=== PATIENT | female | born 1985 | race American Indian/Alaskan Native ===

== ENCOUNTER 2020-08-30 17:46 | Emergency (ER) | payer SELFPAY ==
[2020-08-31 06:14] VITALS: BP 123/81
[2020-08-31 06:22] LABS: Basophils % (Auto) 0.6 % (0.0-1.8); Eosinophils % (Auto) 0.1 % (0.0-4.3); Hematocrit 41.4 % (30.3-42.9); Hemoglobin 14.1 gm/dl (10.1-14.3); Lymphocytes # (Auto) 1.3 K/mm3 (1.2-5.4); Lymphocytes % (Auto) 18.7 % (13.4-35.0); Mean Corpuscular HGB Conc 34 % (30-34); Mean Corpuscular Volume 90 fl (79-97); Monocytes # (Auto) 0.3 K/mm3 (0.0-0.8); Monocytes % (Auto) 4.7 % (0.0-7.3); Platelet Count 220 K/mm3 (140-440); Red Blood Count 4.59 M/mm3 (3.65-5.03); Red Cell Distribution Width 12.9 % (13.2-15.2)
--- NOTE | 2020-08-31 06:29 | Emergency Department Report ---
HPI - HPI HPI: This is a 34-year-old -[place] female who presents to the emergency department with a complaint of depression and suicidal ideations, with a plan to stab herself. Patient says that she went to the store to buy cigarettes and soda and became severely depressed when she did not have the money to buy these items. She says that she has been without any money over the past 3 weeks. She has a history of bipolar disorder for which she says she is compliant with Haldol and Depakote. She denies any current hallucinations or any homicidal ideations. She has a past medical history of insulin-dependent diabetes. She denies any fever, headache, chest pain, shortness of breath, lower extremity s welling, nausea, vomiting. She denies any current alcohol intoxication or any illicit drug use. <ORALIA VELIZ - Last Filed: 08/31/20 15:41> <SABINE PRICE - Last Filed: 09/01/20 11:46> - General Chief Complaint: Psych Time Seen by Provider: 08/31/20 06:02 ED Past Medical Hx - Past Medical History Hx Diabetes: Yes Hx Psychiatric Treatment: Yes - Surgical History Past Surgical History?: No - Social History Smoking Status: Current Every Day Smoker Substance Use Type: None <ORALIA VELIZ - Last Filed: 08/31/20 15:41> ED Review of Systems ROS: Stated complaint: MENTAL HEALTH Other details as noted in HPI Comment: All other systems reviewed and negative Constitutional: denies: chills, fever Eyes: denies: eye pain, vision change Respiratory: denies: cough, shortness of breath Cardiovascular: denies: chest pain, palpitations Gastrointestinal: denies: abdominal pain, vomiting Musculoskeletal: denies: back pain, arthralgia Skin: denies: rash, lesions Neurological: denies: headache, weakness Psychiatric: depression, suicidal thoughts. denies: auditory hallucinations, visual hallucinations, homicidal thoughts <ORALIA VELIZ - Last Filed: 08/31/20 15:41> ROS: Stated complaint: MENTAL HEALTH Other details as noted in HPI <SABINE PRICE - Last Filed: 09/01/20 11:46> Physical Exam - Physical Exam Vital Signs: Vital Signs 08/30/20 08/31/20 18:55 06:00 Temperature 98.3 F 98.2 F Pulse Rate 81 Respiratory 20 18 Rate Blood Pressure 125/90 Blood Pressure 123/81 [Left] O2 Sat by Pulse 100 Oximetry Physical Exam: GENERAL: The patient is well-developed well-nourished. HENT: Normocephalic. Atraumatic. Patient has moist mucous membranes. EYES: Extraocular motions are intact. NECK: Supple. Trachea is midline. CHEST/LUNGS: Clear to auscultation. There is no respiratory distress noted. HEART/CARDIOVASCULAR: Regular. There is no tachycardia. There is no murmur. ABDOMEN: Abdomen is soft, nontender. Patient has normal bowel sounds. There is no abdominal distention. SKIN: Skin is warm and dry. NEURO: The patient is awake, alert, and cooperative. The patient has no focal neurologic deficits. Normal speech. MUSCULOSKELETAL: There is no tenderness or deformity. There is no limitation range of motion. PSYCH: Patient has a flat affect. <ORALIA VELIZ - Last Filed: 08/31/20 15:41> - Physical Exam Vital Signs: Vital Signs 08/30/20 08/31/20 08/31/20 18:55 06:00 23:08 Temperature 98.3 F 98.2 F Pulse Rate 81 Respiratory 20 18 18 Rate Blood Pressure 125/90 Blood Pressure 123/81 [Left] O2 Sat by Pulse 100 Oximetry <SABINE PRICE - Last Filed: 09/01/20 11:46> ED Course Vital Signs 08/30/20 08/31/20 18:55 06:00 Temperature 98.3 F 98.2 F Pulse Rate 81 Respiratory 20 18 Rate Blood Pressure 125/90 Blood Pressure 123/81 [Left] O2 Sat by Pulse 100 Oximetry <ORALIA VELIZ - Last Filed: 08/31/20 15:41> Vital Signs 08/30/20 08/31/20 08/31/20 18:55 06:00 23:08 Temperature 98.3 F 98.2 F Pulse Rate 81 Respiratory 20 18 18 Rate Blood Pressure 125/90 Blood Pressure 123/81 [Left] O2 Sat by Pulse 100 Oximetry <SABINE PRICE - Last Filed: 09/01/20 11:46> ED Medical Decision Making - Lab Data Result diagrams: 08/31/20 06:09 08/31/20 06:09 Lab Results 08/31/20 08/31/20 08/31/20 Range/Units 06:09 06:09 06:09 WBC 7.1 (4.5-11.0) K/mm3 RBC 4.59 (3.65-5.03) M/mm3 Hgb 14.1 (10.1-14.3) gm/dl Hct 41.4 (30.3-42.9) % MCV 90 (79-97) fl MCH 31 (28-32) pg MCHC 34 (30-34) % RDW 12.9 L (13.2-15.2) % Plt Count 220 (140-440) K/mm3 Lymph % (Auto) 18.7 (13.4-35.0) % [place] % (Auto) 4.7 (0.0-7.3) % Eos % (Auto) 0.1 (0.0-4.3) % Baso % (Auto) 0.6 (0.0-1.8) % Lymph # (Auto) 1.3 (1.2-5.4) K/mm3 [place] # (Auto) 0.3 (0.0-0.8) K/mm3 Eos # (Auto) 0.0 (0.0-0.4) K/mm3 Baso # (Auto) 0.0 (0.0-0.1) K/mm3 Seg Neutrophils % 75.9 H (40.0-70.0) % Seg Neutrophils # 5.4 (1.8-7.7) K/mm3 Sodium 132 L (137-145) mmol/L Potassium 4.1 (3.6-5.0) mmol/L Chloride 93.7 L (98-107) mmol/L Carbon Dioxide 26 (22-30) mmol/L Anion Gap 16 mmol/L BUN 12 (7-17) mg/dL Creatinine 0.8 (0.6-1.2) mg/dL Estimated GFR > 60 ml/min BUN/Creatinine Ratio 15 % Glucose 446 H (65-100) mg/dL POC Glucose (70-105) mg/dL Calcium 9.6 (8.4-10.2) mg/dL Plasma/Serum Alcohol < 0.01 (0-0.07) % Coronavirus (PCR) (Negative) 08/31/20 08/31/20 08/31/20 Range/Units 07:32 08:36 10:44 WBC (4.5-11.0) K/mm3 RBC (3.65-5.03) M/mm3 Hgb (10.1-14.3) gm/dl Hct (30.3-42.9) % MCV (79-97) fl MCH (28-32) pg MCHC (30-34) % RDW (13.2-15.2) % Plt Count (140-440) K/mm3 Lymph % (Auto) (13.4-35.0) % [place] % (Auto) (0.0-7.3) % Eos % (Auto) (0.0-4.3) % Baso % (Auto) (0.0-1.8) % Lymph # (Auto) (1.2-5.4) K/mm3 [place] # (Auto) (0.0-0.8) K/mm3 Eos # (Auto) (0.0-0.4) K/mm3 Baso # (Auto) (0.0-0.1) K/mm3 Seg Neutrophils % (40.0-70.0) % Seg Neutrophils # (1.8-7.7) K/mm3 Sodium (137-145) mmol/L Potassium (3.6-5.0) mmol/L Chloride (98-107) mmol/L Carbon Dioxide (22-30) mmol/L Anion Gap mmol/L BUN (7-17) mg/dL Creatinine (0.6-1.2) mg/dL Estimated GFR ml/min BUN/Creatinine Ratio % Glucose (65-100) mg/dL POC Glucose 353 H 342 H (70-105) mg/dL Calcium (8.4-10.2) mg/dL Plasma/Serum Alcohol (0-0.07) % Coronavirus (PCR) Negative (Negative) 08/31/20 Range/Units 12:27 WBC (4.5-11.0) K/mm3 RBC (3.65-5.03) M/mm3 Hgb (10.1-14.3) gm/dl Hct (30.3-42.9) % MCV (79-97) fl MCH (28-32) pg MCHC (30-34) % RDW (13.2-15.2) % Plt Count (140-440) K/mm3 Lymph % (Auto) (13.4-35.0) % [place] % (Auto) (0.0-7.3) % Eos % (Auto) (0.0-4.3) % Baso % (Auto) (0.0-1.8) % Lymph # (Auto) (1.2-5.4) K/mm3 [place] # (Auto) (0.0-0.8) K/mm3 Eos # (Auto) (0.0-0.4) K/mm3 Baso # (Auto) (0.0-0.1) K/mm3 Seg Neutrophils % (40.0-70.0) % Seg Neutrophils # (1.8-7.7) K/mm3 Sodium (137-145) mmol/L Potassium (3.6-5.0) mmol/L Chloride (98-107) mmol/L Carbon Dioxide (22-30) mmol/L Anion Gap mmol/L BUN (7-17) mg/dL Creatinine (0.6-1.2) mg/dL Estimated GFR ml/min BUN/Creatinine Ratio % Glucose (65-100) mg/dL POC Glucose 214 H (70-105) mg/dL Calcium (8.4-10.2) mg/dL Plasma/Serum Alcohol (0-0.07) % Coronavirus (PCR) (Negative) - Medical Decision Making This patient presents to the emergency department with complaint of depression and suicidal ideations with a plan to stab herself after she was unable to buy herself cigarettes and soda. For this reason the patient has been made a 1013 and placed on an ED hold. She was later seen by the psychiatric assessment team who agrees with the plan for inpatient stabilization. The patient's labs showed hyperglycemia with an initial blood sugar of 446 on serum blood draw. On [id number] testing the blood sugar was 353 prior to receiving any IV fluid or insulin. She was given the fluid and insulin and on recheck the blood sugar had only gone down about 10-20 points but it turns out that the patient received a breakfast tray around this time. She was given another dose of IV fluid and IV insulin and her blood sugar eventually came down to a more reasonable level at about 215. No signs of diabetic ketoacidosis. Blood alcohol level negative. We are waiting for a urine sample for urinalysis and UDS. Vital signs stable throughout her ED course thus far. The patient is medically cleared for psychiatric placement. <ORALIA VELIZ - Last Filed: 08/31/20 15:41> - Lab Data Result diagrams: 08/31/20 06:09 08/31/20 06:09 - Medical Decision Making 1013 rescinded by mental health team. Discharged home. <SABINE PRICE - Last Filed: 09/01/20 11:46> Critical Care Time: No Critical care attestation.: If time is entered above; I have spent that time in minutes in the direct care of this critically ill patient, excluding procedure time. <ORALIA VELIZ - Last Filed: 08/31/20 15:41> Critical care attestation.: If time is entered above; I have spent that time in minutes in the direct care of this critically ill patient, excluding procedure time. <SABINE PRICE - Last Filed: 09/01/20 11:46> ED Disposition Is pt being admited?: No Time of Disposition: 15:45 <ORALIA VELIZ - Last Filed: 08/31/20 15:41> Is pt being admited?: No Does the pt Need Aspirin: No <SABINE PRICE - Last Filed: 09/01/20 11:46> Clinical Impression: Bipolar 1 disorder, depressed, severe, Hyperglycemia Disposition: DC- TO HOME OR SELFCARE Condition: Stable
[2020-08-31 06:43] LABS: BUN/Creatinine Ratio 15; Blood Urea Nitrogen 12 mg/dL (7-17); Calcium 9.6 mg/dL (8.4-10.2); Hemolysis Index 8
[2020-08-31] MEDS ORDERED: SODIUM CHLORIDE 0.9% 1000 ML 1,000 ML IV ONE ×2 (06:46→10:46)
[2020-08-31] MEDS ORDERED: INSULIN REGULAR, HUMAN 100 UNITS/1 ML IV ONE ×2 (06:46→09:08)
--- NOTE | 2020-08-31 11:04 | Event Note ---
S: "I have a little bit of a headache. May I have some Tylenol?" O: NAD, stable vital signs, recent BG 353 A: SI, IDDM, tension MELCHOR P: order home insulin regimen consider SSI, awaiting MH consultation
[2020-08-31] MEDS ORDERED: DEXTROSE 50% IN WATER (25GM) 50 ML SYRINGE IV PRN (11:15)
--- NOTE | 2020-08-31 12:16 | Consultation ---
History of Present Illness - Reason for Consult Consult date: 08/31/20 Reason for consult: MHE Requesting physician: SABINE PRICE - History of Present Psychiatric Illness Per ED Provider: This is a 34-year-old -[place] female who presents to the emergency department with a complaint of depression and suicidal ideations, with a plan to stab herself. Patient says that she went to the store to buy cigarettes and soda and became severely depressed when she did not have the money to buy these items. She says that she has been without any money over the past 3 weeks. She has a history of bipolar disorder for which she says she is compliant with Haldol and Depakote. She denies any current hallucinations or any homicidal ideations. She has a past medical history of insulin-dependent diabetes. She denies any fever, headache, chest pain, shortness of breath, lower extremity swelling, nausea, vomiting. She denies any current alcohol intoxication or any illicit drug use. PSYCH HPI Patient is a 34-year-old, single, currently homeless and unemployed, receiving disability income -[place] female with past psychiatric history of bipolar schizophrenia who presented to the ED with chief complaint of depression and suicidal ideation. Patient reported suicidal ideation is due to her depression which is conditional to not having any money at the moment to buy what she wants. Patient states that she is not able to go out and chill. Patient reports she has just recently been released from prison, and when she tried to look for her mom who is her payee, she realized mom had sold the house and moved away and she does not have any contact. SHe says she is depressed because she doesnt have money. She states there is no point living likes this without money, hence she would rather PAST PSYCHIATRIC HISTORY Diagnoses: bipolar schizophrenia Suicide attempts or Self-harm behavior: yes Prior psychiatric hospitalizations: yes Substance Abuse history: alcohol and marijuana Previous psychiatric medications tried: unknown Outpatient treatment: none reported PAST MEDICAL HISTORY: none reported Family Psychiatric History: None reported or documented SOCIAL HISTORY Marital Status: single Living Arrangements: homeless Employment Status: none Access to guns/weapons: none Education: high school History of Abuse: none reported Legal History: yes REVIEW OF SYSTEMS Constitutional: Negative for weight loss ENT: Negative for stridor Respiratory: Negative for cough or hemoptysis All other systems reviewed and are negative MENTAL STATUS EXAMINATION General Appearance and Behavior: Age appropriate, good hygiene, wearing appropriate clothes,, good eye contact Cooperation: Participating/engaged, but Guarded Psychomotor Behavior: Psychomotor normal Mood: depressed Affect and affective range: irritable, labile Thought Process: illogical Thought Content: hopelessness, helplessness Speech: Normal rate, volume and rythm Intellectual Functioning: Average Suicidal Ideation: SI Homicidal Ideation: Denies HI Impulse Control: Impaired Insight and Judgment: Limited insight and judgment Memory: Normal Attention: Normal Orientation: Alert, oriented Assessment and Plan - Psychiatric problem (1) Bipolar 1 disorder F31.9 Current Visit: Yes Status: Acute Treatment Plan Patient needs acute medication stabilization for her bipolar manic episode. MEDICATIONS: Risks, benefits and alternatives of medications discussed with the patient, questions answered and consent obtained from patient. PSYCHOTHERAPY: Supportive psychotherapy provided MEDICAL: Per primary team DELIRIUM PRECAUTIONS: Please re-orient patient frequently, keep lights on during the day, and minimize benzodiazepines and opiates as these medications could worsen patient's confusion. 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 Case discussed with Dr. Ferro who agrees with current disposition LEGAL STATUS: 1013 FOLLOW-UP: Will follow Thank you for the consult. Please contact with any questions and/or concerns. Medications and Allergies Allergies Allergy/AdvReac Type Severity Reaction Status Date / Time No Known Allergies Allergy Verified 08/30/20 18:59 Active Meds: Active Medications Dextrose (Dextrose 50% In Water (25gm) 50 Ml Syringe) 50 ml IV Q30MIN PRN; Protocol PRN Reason: Hypoglycemia Insulin Glargine (Insulin Glargine 100 Units/Ml) 14 units SUB-Q [facility] Insulin Human Lispro (Insulin Lispro 100 Unit/Ml) 10 unit SUB-Q [facility] Mental Status Exam - Vital signs Last Vital Signs Temp 98.2 F 08/31/20 06:00 Pulse 81 08/31/20 06:00 Resp 18 08/31/20 06:00 BP 123/81 08/31/20 06:00 Pulse Ox 100 08/31/20 06:00 Results Result Diagrams: 08/31/20 06:09 08/31/20 06:09 Abnormal lab results 08/31/20 08/31/20 08/31/20 Range/Units 06:09 06:09 07:32 RDW 12.9 L (13.2-15.2) % Seg Neutrophils % 75.9 H (40.0-70.0) % Sodium 132 L (137-145) mmol/L Chloride 93.7 L (98-107) mmol/L Glucose 446 H (65-100) mg/dL POC Glucose 353 H (70-105) mg/dL All other labs normal. Assessment and Plan - Psychiatric problem (1) Bipolar 1 disorder, depressed, severe Current Visit: Yes Status: Acute
[2020-08-31] MEDS: VALPROIC ACID 250 MG CAP PO SCH ×2 (15:14→22:12)
[2020-08-31] MEDS: HALOPERIDOL 2 MG TAB PO SCH ×2 (15:15→22:12)
[2020-08-31] MEDS: ACETAMINOPHEN 500 MG TAB PO ONE ×3 (15:20→19:33)
[2020-08-31 16:09] LABS: Bilirubin,Urine NEG (Negative); Blood,Urine SM (Negative); Color,Urine Yellow (Yellow); Mucus,Urine FEW /HPF; Protein,Urine <15 mg/dL mg/dL (Negative); Urobilinogen,Urine < 2.0 mg/dL (<2.0)
[2020-08-31 16:14] LABS: Amphetamine Screen,Urine Negative; Benzodiazepines Screen,Urine Negative; Cannabinoid Screen,Urine Negative; Cocaine Screen,Urine Negative; Methadone Screen,Urine Negative; Opiate Screen,Urine Negative
[2020-08-31] MEDS: INSULIN LISPRO 100 UNIT/ML SUB-Q SCH ×2 (16:56→19:34)
[2020-08-31] MEDS ORDERED: ACETAMINOPHEN 325 MG TAB PO ONE (17:03)
[2020-08-31] MEDS ORDERED: INSULIN GLARGINE 100 UNITS/ML SUB-Q SCH (22:00)
[2020-09-01] MEDS: INSULIN LISPRO 100 UNIT/ML SUB-Q SCH (08:00)
[2020-09-01] MEDS: HALOPERIDOL 2 MG TAB PO SCH (09:42)
[2020-09-01] MEDS: VALPROIC ACID 250 MG CAP PO SCH (09:42)
--- NOTE | 2020-09-01 09:49 | Progress Note ---
Subjective - Reason for Consult Consult date: 09/01/20 Reason for consult: MHE Requesting physician: ORALIA VELIZ - Chief Complaint Chief complaint: Psych Progress Patient endorses feeling good today, denies SI, HI or AVH. States she no longer feels depressed or angry. Patient also states she does not want any meds rx, will go home and continue her own meds. REVIEW OF SYSTEMS Constitutional: Negative for weight loss ENT: Negative for stridor Respiratory: Negative for cough or hemoptysis All other systems reviewed and are negative MENTAL STATUS EXAMINATION General Appearance and Behavior: Age appropriate, good hygiene, wearing appropriate clothes, good eye contact, cooperative polite with questioning. Cooperation: Participating/engaged Psychomotor Behavior: unremarkable and within normal limits Mood: Good Affect and affective range: congruent with mood Thought Process: Fluent/Logical, Thought Content: Within reality, Speech: Normal volume, Regular rate and rhythm, Intellectual Functioning: Average Suicidal Ideation: Denies SI Homicidal Ideation: Denies HI Impulse Control: Unimpaired Insight and Judgment: Normal insight and judgment, Memory: Normal, Attention: Normal, Orientation: Alert, oriented, Assessment and Plan - Psychiatric problem (1) Bipolar 1 disorder F31.9 Current Visit: Yes Status: Acute Treatment Plan Patient needs acute medication stabilization for her bipolar manic episode. MEDICATIONS: Risks, benefits and alternatives of medications discussed with the patient, questions answered and consent obtained from patient. PSYCHOTHERAPY: Supportive psychotherapy provided MEDICAL: Per primary team DELIRIUM PRECAUTIONS: Please re-orient patient frequently, keep lights on during the day, and minimize benzodiazepines and opiates as these medications could worsen patient's confusion. 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 Case discussed with Dr. Ferro who agrees with current disposition LEGAL STATUS: 1013 rescinded FOLLOW-UP: Will sign off Thank you for the consult. Please contact with any questions and/or concerns. Mental Status Exam - Vital signs Last Vital Signs Temp 98.2 F 08/31/20 06:00 Pulse 81 08/31/20 06:00 Resp 18 08/31/20 23:08 BP 123/81 08/31/20 06:00 Pulse Ox 100 08/31/20 06:00 Assessment and Plan - Patient Problems (1) Bipolar 1 disorder, depressed, severe Current Visit: Yes Status: Acute
--- NOTE | 2020-09-01 11:46 | Event Note ---
S: "I'm better. I need transportation home." O: Insightful, calm, denies suicidal ideation denies homicidal ideation, denies hallucinations A: Bipolar disorder, insulin-dependent diabetes last blood sugar taken on yesterday 214, patient has refused Accu-Cheks Plan: Mental health team has rescinded 1013. Patient does not meet criteria for inpatient stabilization, I agree that patient is appropriate and safe for discharge
== END 2020-09-01 12:55 | disposition home or self-care (01) ==
LOC: EEVIPCON 17:46 → ED 17:46
DX: F31.9 Bipolar disorder, unspecified (principal); E11.9 Type 2 diabetes mellitus without complications; F17.200 Nicotine dependence, unspecified, uncomplicated; Z79.899 Other long term (current) drug therapy; Z20.822 Contact with and (suspected) exposure to COVID-19
CPT/HCPCS: 36415; 80048; 80307; 81001; 82962; 85025; 96361; 96374; 96376; 99284; J7030; U0003; 80320; G0480; J1815